=== PATIENT | female | born 1985 | race Caucasian/White ===

== ENCOUNTER 2018-09-27 20:05 | Emergency (ER) | payer MEDICAID, SELFPAY ==
[2018-09-27 20:55] LABS: Bilirubin Negative (Negative); Blood, Urine Large (Negative); Clarity CLEAR (Clear); Glucose, Urine (Dipstick) Negative (Negative); Leukocyte Negative (Negative); Nitrite Negative (Negative); Protein, Urine (Dipstick) Negative (Neg-Trace); Specific Gravity, Urine 1.007 (1.002-1.036); Urobilinogen 0.2 mg/dL (0.2-1.0)
[2018-09-27 20:57] LABS: Bacteria/HPF None Seen HPF (None Seen); Hyaline Casts/LPF 0-3 HYALINE CAST LPF (0-3 Hyaline); Pathc Cast-AUWi Flag 0.14 (0-2.49); Pregnancy Test - Urine (BHCG) Negative (Negative); Pregu Control Background? CLEAR/WHITE (CLR/WHITE); Pregu Control Bar Appear? YES (CONTROL BAR); RBC/HPF 21-50 HPF (0-3); Specific Gravity 1.007 (1.002-1.036); Squamous Epithelial None Seen HPF (0-3); WBC/HPF None Seen HPF (0-3)
[2018-09-27] MEDS ORDERED: Morphine 4 MG/ML VIAL ONE (21:49)
--- NOTE | 2018-09-27 22:05 | CT ---
CT OF ABDOMEN AND PELVIS PERFORMED WITHOUT CONTRAST ENHANCEMENT: 09/27/18 HISTORY: Left flank pain. Lung bases are clear of infiltrates. There is some minimal linear change in the right middle lobe and lingula. This could represent scar or atelectasis. The liver, spleen, and pancreas regions appear unremarkable. Gallbladder is normal in size. Right and left adrenal glands are normal. Bilateral renal calculi are present. Largest calculus is a 6 to 7 mm calculus in the left renal pelvis. The left renal pelvis is minimally dilated and some mini mal dilatation of the proximal left ureter with some moderate periureteral fat stranding in this divya on. I do not see a true ureteral calculus. I suspect that this renal pelvis calcification may be inte rmittently obstructing. There is no significant periaortic or mesenteric adenopathy. CT OF PELVIS PERFORMED WITHOUT CONTRAST ENHANCEMENT: Bilateral tubal ligation is noted. The appendix is normal. No evidence of adenopathy or mass. IMPRESSION: Bilateral renal calculi. A 6 mm calculus within the left renal pelvis associated with some minimal di latation to the left collecting system and periureteral fat stranding involving the proximal left ure ter. Although there is not a ureteral calculus seen at this time, I suspect that calculus in the left renal pelvis is intermittently obstructing. POS: [facility]
[2018-09-27 22:15] LABS: #Basophils 0.1 thou/uL (0.0-0.2); #Eosinphils 0.2 thou/uL (0.0-0.7); #Monocytes 0.5 thou/uL (0.11-0.59); #Neutrophils 5.6 thou/uL (1.40-6.50); %Basophils 0.6 % (0.0-1.0); %Eosinophils 1.7 % (0.0-10.0); %Lymphocytes 31.8 % (21.0-51.0); %Monocytes 5.6 % (0.0-10.0); %Neutrophils 60.3 % (42.0-75.0); Hemoglobin 14.3 g/dL (12.0-16.0); Mean Corpuscular HGB CONC 35.6 g/dL (32.0-36.0); Mean Corpuscular Hemoglobin 32.4 pg (27.0-31.0); Mean Corpuscular Volume 90.8 fL (78.0-98.0); Mean Platelet Volume 7.2 fL (7.4-10.4); Platelet Count 373 thou/uL (130-400); RBC Distribution Width 11.4 % (11.5-14.5); Red Blood Cell (RBC) Count 4.42 mill/uL (4.20-5.40); White Blood Cell (WBC) Count 9.3 thou/uL (4.8-10.8)
[2018-09-27 22:37] LABS: ALT (SGPT) 35 U/L (8-55); AST (SGOT) 31 U/L (5-34); Albumin 4.4 g/dL (3.5-5.0); Alkaline Phosphatase 85 U/L (40-150); Anion Gap 14 mmol/L (10-20); BUN (Urea Nitrogen) 8 mg/dL (7.0-18.7); Bilirubin, Total Less than 0.2 mg/dL (0.2-1.2); Calc. Creatinine Clearance 0 mL/min (70-130); Calcium 9.2 mg/dL (7.8-10.44); Carbon Dioxide 19 mmol/L (22-29); Chloride 108 mmol/L (98-107); Estimated GFR-MDRD 82; Globulin 4.1 g/dL (2.4-3.5); Glucose 86 mg/dL (70-105); Protein, Total 8.5 g/dL (6.0-8.3); Sodium 137 mmol/L (136-145)
[2018-09-27] MEDS ORDERED: Ketorolac Tromethamine 30 MG/ML VIAL ONE (23:08)
== END 2018-09-27 23:21 | disposition home or self-care (01) ==
LOC: ERS 20:05
DX: N20.0 Calculus of kidney (principal)
CPT/HCPCS: 74176; 80053; 81003; 81015; 81025; 85025; 87077; 87086; 96374; 96375; J1885; J2270

== ENCOUNTER 2018-10-05 20:52 | Emergency (ER) | payer SELFPAY ==
[2018-10-05] MEDS ORDERED: Ketorolac Tromethamine 30 MG/ML VIAL ONE (21:48)
[2018-10-05 22:02] LABS: Bilirubin Small (Negative); Blood, Urine Negative (Negative); Clarity CLEAR (Clear); Glucose, Urine (Dipstick) Negative (Negative); Leukocyte Small (Negative); Nitrite Negative (Negative); Pregnancy Test - Urine (BHCG) Negative (Negative); Pregu Control Background? CLEAR/WHITE (CLR/WHITE); Pregu Control Bar Appear? YES (CONTROL BAR); Protein, Urine (Dipstick) Negative (Neg-Trace); Specific Gravity 1.028 (1.002-1.036); Specific Gravity, Urine 1.028 (1.002-1.036)
[2018-10-05 22:04] LABS: Bacteria/HPF Rare-Few HPF (None Seen); Hyaline Casts/LPF 0-3 HYALINE CAST LPF (0-3 Hyaline); Pathc Cast-AUWi Flag 0.58 (0-2.49)
[2018-10-05 22:05] LABS: #Basophils 0.1 thou/uL (0.0-0.2); #Eosinphils 0.2 thou/uL (0.0-0.7); #Lymphocytes 2.1 thou/uL (1.20-3.40); #Monocytes 0.5 thou/uL (0.11-0.59); #Neutrophils 5.9 thou/uL (1.40-6.50); %Basophils 0.6 % (0.0-1.0); %Eosinophils 1.8 % (0.0-10.0); %Monocytes 5.4 % (0.0-10.0); %Neutrophils 68.2 % (42.0-75.0); Hemoglobin 13.4 g/dL (12.0-16.0); Mean Corpuscular HGB CONC 33.6 g/dL (32.0-36.0); Mean Corpuscular Hemoglobin 30.6 pg (27.0-31.0); Mean Corpuscular Volume 90.8 fL (78.0-98.0); Mean Platelet Volume 7.1 fL (7.4-10.4); Platelet Count 332 thou/uL (130-400); RBC Distribution Width 11.3 % (11.5-14.5); Red Blood Cell (RBC) Count 4.39 mill/uL (4.20-5.40); White Blood Cell (WBC) Count 8.7 thou/uL (4.8-10.8)
[2018-10-05 22:12] LABS: RBC/HPF 0-3 HPF (0-3)
[2018-10-05 22:40] LABS: ALT (SGPT) 52 U/L (8-55); AST (SGOT) 45 U/L (5-34); Albumin 4.3 g/dL (3.5-5.0); Alkaline Phosphatase 78 U/L (40-150); Anion Gap 16 mmol/L (10-20); BUN (Urea Nitrogen) 14 mg/dL (7.0-18.7); Bilirubin, Total 0.2 mg/dL (0.2-1.2); Calc. Creatinine Clearance 0 mL/min (70-130); Calcium 9.4 mg/dL (7.8-10.44); Carbon Dioxide 20 mmol/L (22-29); Chloride 108 mmol/L (98-107); Estimated GFR-MDRD 80; Globulin 3.7 g/dL (2.4-3.5); Glucose 129 mg/dL (70-105); Potassium 3.6 mmol/L (3.5-5.1); Sodium 140 mmol/L (136-145)
--- NOTE | 2018-10-05 22:55 | ULT ---
BILATERAL RENAL ULTRASOUND COMPLETE: 10/05/18 HISTORY: 32-year-old female with history of left flank pain. The right kidney measures 11.0 x 4.2 x 4.0 cm. The left kidney measures 11.1 x 4.7 x 4.4 cm. No evide nce for renal hydronephrosis. The bladder appears unremarkable. Bilateral ureteral jets. IMPRESSION: Evidence for some bilateral nonobstructing renal calculi with bilateral hyperechoic foci. No hydronep hrosis. Bilateral ureteral jets. POS: [facility]
[2018-10-05] MEDS ORDERED: Cefepime 1 GM VIAL ONE (22:59)
[2018-10-05] MEDS ORDERED: cefTRIAXone\\ROCEPHIN 1 GM VIAL ONE (23:06)
[2018-10-05] MEDS ORDERED: traMADol HCl 50 MG TAB ONE (23:06)
[2018-10-06] MEDS ORDERED: HYDROcodone/Acetaminophen 5/325 mg Tablet ONE (00:19)
== END 2018-10-06 00:54 | disposition home or self-care (01) ==
LOC: ERS 20:52
DX: N20.0 Calculus of kidney (principal); N39.0 Urinary tract infection, site not specified
CPT/HCPCS: 76770; 80053; 81003; 81015; 81025; 85025; 96361; 96365; 96375; J0692; J0696; J1885

== ENCOUNTER 2018-10-09 09:44 | Emergency (ER) | payer SELFPAY ==
[2018-10-09 10:30] LABS: Bilirubin Negative (Negative); Blood, Urine Negative (Negative); Glucose, Urine (Dipstick) Negative (Negative); Leukocyte Negative (Negative); Nitrite Negative (Negative); Protein, Urine (Dipstick) Negative (Neg-Trace); Specific Gravity, Urine 1.025 (1.005-1.030); Urobilinogen 0.2 mg/dL (0.2-1.0); pH, Urine 6.5 (5.0-9.0)
[2018-10-09 10:31] LABS: Clarity Clear (Clear)
[2018-10-09 10:32] LABS: Pregnancy Test - Urine (BHCG) Negative (Negative); Pregu Control Background? CLEAR/WHITE (CLR/WHITE); Pregu Control Bar Appear? YES (CONTROL BAR); Specific Gravity 1.025 (1.002-1.036)
[2018-10-09 10:51] LABS: Bacteria/HPF 1+ HPF (None Seen); RBC/HPF 0-3 HPF (0-3); WBC/HPF 0-3 HPF (0-3)
[2018-10-09 10:52] LABS: Crystals/HPF RARE SODIUM URATE HPF (Negative)
[2018-10-09] MEDS ORDERED: Morphine 4 MG/ML VIAL ONE (11:26)
[2018-10-09] MEDS ORDERED: Ondansetron PF 4 MG/2 ML Vial ONE (11:26)
[2018-10-09 12:09] LABS: #Basophils 0.1 thou/uL (0.0-0.2); #Eosinphils 0.2 thou/uL (0.0-0.7); #Lymphocytes 2.5 thou/uL (1.20-3.40); #Monocytes 0.5 thou/uL (0.11-0.59); #Neutrophils 5.2 thou/uL (1.40-6.50); %Basophils 0.7 % (0.0-1.0); %Eosinophils 2.1 % (0.0-10.0); %Lymphocytes 29.5 % (21.0-51.0); %Monocytes 5.9 % (0.0-10.0); %Neutrophils 61.8 % (42.0-75.0); Hemoglobin 14.6 g/dL (12.0-16.0); Mean Corpuscular HGB CONC 32.6 g/dL (32.0-36.0); Mean Platelet Volume 7.2 fL (7.4-10.4); Platelet Count 336 thou/uL (130-400); RBC Distribution Width 11.4 % (11.5-14.5); Red Blood Cell (RBC) Count 4.86 mill/uL (4.20-5.40); White Blood Cell (WBC) Count 8.5 thou/uL (4.8-10.8)
[2018-10-09 12:29] LABS: Anion Gap 15 mmol/L (10-20); BUN (Urea Nitrogen) 11 mg/dL (7.0-18.7); Calc. Creatinine Clearance 0 mL/min (70-130); Calcium 9.5 mg/dL (7.8-10.44); Carbon Dioxide 19 mmol/L (22-29); Chloride 106 mmol/L (98-107); Estimated GFR-MDRD 89; Glucose 83 mg/dL (70-105); Potassium 4.9 mmol/L (3.5-5.1); Sodium 135 mmol/L (136-145)
== END 2018-10-09 12:58 | disposition home or self-care (01) ==
LOC: ERS 09:44
DX: N20.0 Calculus of kidney (principal); Z79.899 Other long term (current) drug therapy
CPT/HCPCS: 80048; 81003; 81025; 85025; 96374; 96375; J2270; J2405

== ENCOUNTER 2018-10-17 14:15 | Emergency (ER) | payer SELFPAY ==
[2018-10-17 15:00] LABS: #Basophils 0.1 thou/uL (0.0-0.2); #Eosinphils 0.1 thou/uL (0.0-0.7); #Lymphocytes 2.3 thou/uL (1.20-3.40); #Monocytes 0.5 thou/uL (0.11-0.59); #Neutrophils 6.5 thou/uL (1.40-6.50); %Basophils 0.6 % (0.0-1.0); %Eosinophils 1.5 % (0.0-10.0); %Lymphocytes 23.8 % (21.0-51.0); %Monocytes 5.7 % (0.0-10.0); %Neutrophils 68.4 % (42.0-75.0); Hemoglobin 14.3 g/dL (12.0-16.0); Mean Corpuscular HGB CONC 34.2 g/dL (32.0-36.0); Mean Corpuscular Hemoglobin 30.9 pg (27.0-31.0); Mean Corpuscular Volume 90.4 fL (78.0-98.0); Mean Platelet Volume 7.1 fL (7.4-10.4); Platelet Count 364 thou/uL (130-400); RBC Distribution Width 11.3 % (11.5-14.5); Red Blood Cell (RBC) Count 4.64 mill/uL (4.20-5.40); White Blood Cell (WBC) Count 9.5 thou/uL (4.8-10.8)
[2018-10-17 15:21] LABS: ALT (SGPT) 45 U/L (8-55); AST (SGOT) 33 U/L (5-34); Albumin 4.9 g/dL (3.5-5.0); Alkaline Phosphatase 75 U/L (40-150); Anion Gap 14 mmol/L (10-20); BUN (Urea Nitrogen) 12 mg/dL (7.0-18.7); Bilirubin, Total 0.3 mg/dL (0.2-1.2); Calc. Creatinine Clearance 0 mL/min (70-130); Calcium 9.9 mg/dL (7.8-10.44); Carbon Dioxide 22 mmol/L (22-29); Chloride 107 mmol/L (98-107); Estimated GFR-MDRD 89; Globulin 3.7 g/dL (2.4-3.5); Glucose 82 mg/dL (70-105); Potassium 4.1 mmol/L (3.5-5.1); Protein, Total 8.6 g/dL (6.0-8.3); Sodium 139 mmol/L (136-145)
[2018-10-17] MEDS ORDERED: Ondansetron PF 4 MG/2 ML Vial ONE (15:57)
[2018-10-17] MEDS ORDERED: Ketorolac Tromethamine 30 MG/ML VIAL ONE (15:57)
[2018-10-17 16:19] LABS: Bilirubin Negative (Negative); Blood, Urine Negative (Negative); Clarity TURBID (Clear); Glucose, Urine (Dipstick) Negative (Negative); Leukocyte Negative (Negative); Nitrite Negative (Negative); Protein, Urine (Dipstick) Negative (Neg-Trace)
[2018-10-17 16:22] LABS: Pregnancy Test - Urine (BHCG) Negative (Negative); Pregu Control Background? CLEAR/WHITE (CLR/WHITE); Pregu Control Bar Appear? YES (CONTROL BAR)
[2018-10-17] MEDS ORDERED: Morphine 4 MG/ML VIAL ONE (16:38)
== END 2018-10-17 17:30 | disposition home or self-care (01) ==
LOC: ERS 14:15
DX: N20.0 Calculus of kidney (principal)
CPT/HCPCS: 80053; 81003; 81025; 85025; 96361; 96374; 96375; J1885; J2270; J2405

== ENCOUNTER 2018-10-24 19:58 | Emergency (ER) | payer SELFPAY ==
[2018-10-24 20:42] LABS: Bilirubin Negative (Negative); Blood, Urine Negative (Negative); Clarity CLEAR (Clear); Glucose, Urine (Dipstick) Negative (Negative); Leukocyte Negative (Negative); Nitrite Negative (Negative); Protein, Urine (Dipstick) Negative (Neg-Trace); Specific Gravity, Urine 1.016 (1.002-1.036)
== END 2018-10-24 21:54 | disposition left against medical advice (07) ==
LOC: ERS 19:58
DX: Z53.21 Procedure and treatment not carried out due to patient leaving prior to being seen by health care provider (principal)
CPT/HCPCS: 81003

== ENCOUNTER 2018-11-06 11:21 | Inpatient (IN) | payer SELFPAY ==
[2018-11-06 11:59] LABS: #Eosinphils 0.2 thou/uL (0.0-0.7); #Lymphocytes 2.4 thou/uL (1.20-3.40); #Monocytes 0.4 thou/uL (0.11-0.59); #Neutrophils 5.1 thou/uL (1.40-6.50); %Basophils 0.3 % (0.0-1.0); %Eosinophils 2.1 % (0.0-10.0); %Lymphocytes 29.9 % (21.0-51.0); %Monocytes 4.6 % (0.0-10.0); %Neutrophils 63.1 % (42.0-75.0); Hemoglobin 15.4 g/dL (12.0-16.0); Mean Corpuscular HGB CONC 34.4 g/dL (32.0-36.0); Mean Corpuscular Hemoglobin 30.7 pg (27.0-31.0); Mean Corpuscular Volume 89.4 fL (78.0-98.0); Mean Platelet Volume 7.4 fL (7.4-10.4); Platelet Count 367 thou/uL (130-400); RBC Distribution Width 11.2 % (11.5-14.5); Red Blood Cell (RBC) Count 5.01 mill/uL (4.20-5.40); White Blood Cell (WBC) Count 8.1 thou/uL (4.8-10.8)
[2018-11-06 12:18] LABS: Bilirubin Small (Negative); Blood, Urine Negative (Negative); Clarity CLEAR (Clear); Glucose, Urine (Dipstick) Negative (Negative); Leukocyte Negative (Negative); Nitrite Negative (Negative); Protein, Urine (Dipstick) Negative (Neg-Trace); Specific Gravity, Urine 1.029 (1.002-1.036)
[2018-11-06 12:21] LABS: Pregnancy Test - Urine (BHCG) Negative (Negative); Pregu Control Background? CLEAR/WHITE (CLR/WHITE); Pregu Control Bar Appear? YES (CONTROL BAR); Specific Gravity 1.029 (1.002-1.036)
[2018-11-06 12:38] LABS: ALT (SGPT) 30 U/L (8-55); AST (SGOT) 25 U/L (5-34); Albumin 4.6 g/dL (3.5-5.0); Alkaline Phosphatase 88 U/L (40-150); Anion Gap 16 mmol/L (10-20); BUN (Urea Nitrogen) 13 mg/dL (7.0-18.7); Bilirubin, Total 0.2 mg/dL (0.2-1.2); Calc. Creatinine Clearance 0 mL/min (70-130); Calcium 9.8 mg/dL (7.8-10.44); Carbon Dioxide 19 mmol/L (22-29); Chloride 106 mmol/L (98-107); Estimated GFR-MDRD 85; Globulin 3.5 g/dL (2.4-3.5); Glucose 122 mg/dL (70-105); Lipase 14 U/L (8-78); Potassium 3.8 mmol/L (3.5-5.1); Protein, Total 8.1 g/dL (6.0-8.3); Sodium 137 mmol/L (136-145)
--- NOTE | 2018-11-06 14:16 | RAD ---
CHEST 1 VIEW ABDOMEN 2 VIEWS: Date: 11/06/18 HISTORY: Chest and abdomen pain. FINDINGS: The cardiac silhouette and pulmonary vasculature are unremarkable. No confluent air space consolidati on or evidence of free subdiaphragmatic gas. Gas and stool overlie the colon and rectum. No differential air fluid levels. Ligation clips overlie each adnexa. Calcifications overlying the left renal shadow appear similar in position to the CT scan from 8. The right renal calculus is obscured by colon content. No calcifications are reliably demonstrated over the course of either ureter. IMPRESSION: Left renal calcifications appear stable to recent CT scan. Right renal calculus not visualized. POS: [facility]
--- NOTE | 2018-11-06 14:17 | RAD ---
AP PELVIS 1 VIEW: Date; 11/06/18 HISTORY: Urinary tract calculi. FINDINGS: Ligation clips overlie each adnexa. Tiny density just inferior to the right ligation clip is favored to represent a phlebolith from recent CT. No urinary tract calcifications are reliably demonstrated. POS: [facility]
[2018-11-06] MEDS ORDERED: Ketorolac Tromethamine 60 MG/2 ML VIAL ONE (15:37)
[2018-11-06] MEDS ORDERED: Sodium Chloride For Inhalation 0.9% 3 ML NEB ONE (19:03)
[2018-11-06] MEDS ORDERED: Morphine 2 MG/ML SYRINGE SLOW IVP PRN (19:10)
[2018-11-06] MEDS ORDERED: traMADol HCl 50 MG TAB PO PRN (19:11)
[2018-11-06] MEDS ORDERED: Ondansetron ODT 4 MG TAB SL PRN (19:11)
[2018-11-06] MEDS ORDERED: Ondansetron PF 4 MG/2 ML Vial IVP PRN (19:11)
[2018-11-06] MEDS ORDERED: diphenhydrAMINE 25 MG in Sodium Chloride 0.9% 50 ML IVPB PRN (19:29)
[2018-11-06] MEDS ORDERED: Metoclopramide HCl 10 MG/2 ML VIAL IVP PRN (19:29)
[2018-11-06] MEDS ORDERED: Acetaminophen 500 MG TAB PO PRN (19:29)
[2018-11-06 19:42] VITALS: BMI 32.3
[2018-11-06] MEDS: Lactated Ringer's 1,000 ML IV SCH ×2 (19:52→21:31)
[2018-11-06] MEDS: Dextrose 5 % And 0.9 % NaCl 1,000 ML IV SCH (21:23)
[2018-11-06] MEDS: Docusate 100 MG CAP PO SCH (21:29)
[2018-11-06] MEDS: Famotidine 20 MG TAB PO SCH (21:30)
[2018-11-06] MEDS: Morphine 4 MG/ML VIAL SLOW IVP PRN (22:29)
--- NOTE | 2018-11-06 22:53 | HP ---
ADMITTING DIAGNOSIS: Left renal colic. HISTORY OF PRESENT ILLNESS: The patient is a 32-year-old female, who was seen in the office in the middle of September after having been seen in the ER multiple times prior with concerns for left renal colic and a prior CT scan already showing an 8 mm left renal pelvic stone that was likely ball valving, causing intermittent obstruction in addition to a 6 mm lower pole stone and a 2 mm upper pole stone all on the left and 6 mm right stone. When I saw her on October 11, she was doing well without significant pain but had intermittent bouts of nausea and vomiting and I recommended stent as well as the 8 mm stone is unlikely to be able to get in her ureter, much less passed into her bladder without intervention. She continued to have pain intermittently, but we were unable to set up elective intervention based on the lack of insurance. I told her that if she had persistent nausea, vomiting and/or fever, then she had to return to the ER. She returned to the ER today after significant nausea and vomiting and left renal colic, and so we are admitting her for urgent stent and definitive stone therapy. PAST MEDICAL HISTORY: Significant for hepatitis C diagnosed in 2012 after IV drug use, which she has not had treated yet. PAST SURGICAL HISTORY: Includes tonsils at 16 and tubal in 2017. PAST OBSTETRICAL HISTORY: She had 3 pregnancies and 3 deliveries, and normal periods. ALLERGIES: TYLENOL NO.3 CAUSES VOMITING. MEDICATIONS: She has been taking naproxen twice a day and tamsulosin once a day. SOCIAL: no tobacco, no recent drug use, exercise dance/walk 2-3/week REVIEW OF SYSTEMS: Reveals she had a Pap smear in 2016 that was normal and mammogram in 2017 that was normal. She never had a colonoscopy. She denies any fever, chills, or night sweats. She had no shortness of breath or cough or chest pain. She has had significant nausea and vomiting last evening. She has had no concern for cloudy or malodorous urine. No blood in the urine. FAMILY HISTORY: non-contribitory PHYSICAL EXAMINATION: GENERAL: She is sitting comfortably in the bed. She has no diaphoresis. HEAD/NECK: She has no JVD. She has no scleral icterus. HEART: Regular rate and rhythm with no murmurs, gallops, or rubs. LUNGS: Clear to auscultation bilaterally. ABDOMEN: Soft, nondistended, nontender. No CVA tenderness. No lower extremity edema. LOWER EXTREMITIES: no edema, bruising, or palor LABORATORY VALUES: Reveal a normal CBC, creatinine of 0.79. Urinalysis shows no concern for infection, but trace ketones and small bilirubin, while her LFTs were normal. KUB shows 8 mm renal pelvic stone, probably is back in the kidney at this point with 6 mm stone in the lower pole and 2 mm stone seen above that. ASSESSMENT: We have a 32-year-old female with persistent renal colic secondary to 8 mm renal pelvic stone on the left that keeps ball valving causing obstruction, who has returned to the ER for at least the third time now for the same stone, who will be admitted for definitive stent and stone therapy. Risks and benefits of stent and extracorporeal shockwave lithotripsy reviewed in detail. All questions were answered. She can eat and drink up until midnight and then should be n.p.o. Afterwards. Job ID: [id number] [facility]
[2018-11-06] MEDS: traMADol HCl 50 MG TAB PO PRN (23:39)
[2018-11-07] MEDS: Morphine 4 MG/ML VIAL SLOW IVP PRN ×4 (02:27→16:31)
[2018-11-07] MEDS: traMADol HCl 50 MG TAB PO PRN ×2 (03:34→09:12)
[2018-11-07] MEDS: Dextrose 5 % And 0.9 % NaCl 1,000 ML IV SCH (03:37)
[2018-11-07] MEDS: Docusate 100 MG CAP PO SCH (09:10)
[2018-11-07] MEDS: Famotidine 20 MG TAB PO SCH (09:10)
[2018-11-07] MEDS ORDERED: cefTRIAXone\\ROCEPHIN 2 GM in Sodium Chloride 0.9% 100 ML IVPB SCH (12:00)
[2018-11-07] MEDS ORDERED: Fentanyl 100 MCG/2 ML VIAL ONE ×3 (12:57→15:08)
[2018-11-07] MEDS ORDERED: Iothalamate Meglumine 60% 50 ML VIAL FS ONE (13:03)
[2018-11-07] MEDS ORDERED: cefTRIAXone\\ROCEPHIN 1 GM VIAL ONE (13:12)
[2018-11-07] MEDS ORDERED: Sodium Chloride 0.9% 100 ML ONE (13:12)
[2018-11-07] MEDS ORDERED: Furosemide 20 MG/2 ML VIAL ONE (13:37)
[2018-11-07] MEDS ORDERED: Lidocaine 1% PF 5 ML VIAL ONE (13:52)
[2018-11-07] MEDS ORDERED: PROPOFOL 200 MG/20 ML VIAL ONE (13:52)
[2018-11-07] MEDS ORDERED: Dexamethasone 20 MG/5 ML VIAL ONE (13:52)
[2018-11-07] MEDS ORDERED: Ondansetron PF 4 MG/2 ML Vial ONE (13:52)
[2018-11-07] MEDS ORDERED: PHENYLEPHRINE-NS 100 MCG/ML 10 ML SYRINGE ONE (13:52)
[2018-11-07] MEDS ORDERED: diphenhydrAMINE 50 MG/ML VIAL ONE (13:52)
[2018-11-07] MEDS ORDERED: Metoclopramide HCl 10 MG/2 ML VIAL ONE (13:52)
[2018-11-07 16:28] VITALS: TEMP 96
[2018-11-07 16:41] VITALS: BP 104/55
--- NOTE | 2018-11-07 22:57 | OP ---
DATE OF PROCEDURE: 11/07/2018 PREOPERATIVE DIAGNOSIS: Left renal stones with intermittent obstruction from a ball valving renal pelvic stone. POSTOPERATIVE DIAGNOSIS: Left renal stones with intermittent obstruction from a ball valving renal pelvic stone. PROCEDURES PERFORMED: Cystoscopy, left retrograde pyelogram, insertion of left ureteral stent 6 x 24, and left extracorporeal shockwave lithotripsy. ANESTHESIA: General with laryngeal mask airway. FINDINGS: Adequate placement of stone with proximal coil in the upper pole that was fairly large calyx and appeared to accommodate this appropriately, adequate fragmentation of 8, 6, and 2 mm stone on the left. No specimen. No complications. No blood loss. Drains remain with internal double-J with a string. DESCRIPTION OF PROCEDURE: The patient is a 32-year-old female being seen in the office in the middle of September with intermittent renal colic that has been going on and off. We are trying to get set up for definitive therapy, but we were unable to do so given her lack of insurance, so ultimately she returned to the ER again in pain and was admitted directly for definitive therapy. The patient was positioned supine on the table and given general anesthesia with laryngeal mask airway. Then, she was repositioned in lithotomy and prepped and draped in a sterile fashion. Using a 21-Tu[place] cystoscope and 30-degree lens, urethra was traversed and the bladder was dissected. The trigone was erythematous, but otherwise normal. The left Langlois catheter was advanced through the orifice with the aid of a wire and then advanced all the way up without any concern for filling defect, both by lack of resistance in catheter placement and flouroscopy. Then once up to the proximal ureter,a retrograde pyelogram was performed and measurements were taken by 6 x 24 double-J stent. When this wire was removed, the coil was noted in the upper pole. However, there was capacious calyx and I felt that this would not be disturbing her and help in stone fragment passing, so I removed the cystoscope carefully keeping the string intact after draining her bladder and then secured the tape to the inner thigh. She was then returned to supine position and positioned for lithotripsy. A total of 2500 shocks at a maximum power of 4/6 at a maximum rate of 60 then 90 per minute were then delivered, dividing it up to 1600 to the lower and 800 to the mid. Another 100 was delivered to the 2 mm upper pole stone. Good fragmentation was noted. The patient was then awakened and transferred to PACU in stable condition. Job ID: [id number] [facility]
--- NOTE | 2018-11-08 14:44 | DIS ---
DATE OF ADMISSION: 11/06/2018 DATE OF DISCHARGE: 11/07/2018 ADMITTING DIAGNOSIS: Left renal stone with renal colic secondary to ball valving renal stone. DISCHARGE DIAGNOSIS: Left renal stone with renal colic secondary to ball valving renal stone, status post stent and extracorporeal shockwave lithotripsy. HOSPITAL COURSE: The patient was followed for several weeks regarding intermittent renal colic and returned to the ER yet again, so was admitted for definitive stone therapy. Please see the patient's H and P for full details. She underwent left ESWL on 11/07/2018 and did well and was discharged home. She will follow up in the office. Job ID: [id number]
== END 2018-11-07 17:45 | disposition home or self-care (01) | DRG 661 ==
LOC: ERS 11:21 → ERHOLD 16:02 → OBSVTOIN 16:02 → 3SE 18:48
PROVIDERS: ADMIT Urology; ATTEND Urology
PROC: 0T778DZ Dilation of Left Ureter with Intraluminal Device, Via Natural or Artificial Opening Endoscopic (ICD-10-PCS; principal; 2018-11-07)
PROC: 0TF4XZZ Fragmentation in Left Kidney Pelvis, External Approach (ICD-10-PCS; 2018-11-07)
PROC: BT1FZZZ Fluoroscopy of Left Kidney, Ureter and Bladder (ICD-10-PCS; 2018-11-07)
DX: N20.0 Calculus of kidney (principal); N13.9 Obstructive and reflux uropathy, unspecified; Z90.89 Acquired absence of other organs; Z98.51 Tubal ligation status; Z86.19 Personal history of other infectious and parasitic diseases; Z88.5 Allergy status to narcotic agent
CPT/HCPCS: 36415; 72170; 74022; 80053; 81003; 81025; 83690; 85025; 87086; 96361; 96374; C1758; J0696; J1885; J1940; J2270; J2405; J2765; J3010; J7050; Q0162; Q9961